=== PATIENT | female | born 1955 | race Caucasian/White ===

== ENCOUNTER 2016-09-27 14:52 | Emergency (ER) | payer OTHER ==
[~2016-09-27] VITALS: Ht 154.9 cm; Wt 70.0 kg
[~2016-09-27 14:52] MED LIST: AZIT250T3 PO; BENZ100 PO; LEVO.125 PO; PRED20 PO
[2016-09-27 15:02] VITALS: BP 128/72; PULSE 81; RESP 17; TEMP 98.5; O2SAT 98
[2016-09-27 15:39] LABS: BLOOD, URINE NEG (NEG); GLUCOSE,URINE NEG (NEG); KETONE, URINE NEG (NEG); NITRITE,URINE NEG (NEG)
[2016-09-27] MEDS ORDERED: MACR100C2 PO (15:49)
[2016-09-27] MEDS ORDERED: CIPR-9 PO (15:49)
[2016-09-27 15:51] LABS: BACTERIA, URINE FEW /hpf; COMMENT (UR) CULT NOT INDICATED; CULTURE IF INDICATED CULT NOT INDICATED; RBC, URINE 0-3 /hpf (0-3); URINE COLOR STRAW (YELLW/STRAW)
[2016-09-27] MEDS ORDERED: FLUCONAZOLE 100 MG TAB PO ONE (17:00)
--- NOTE | 2016-09-27 17:02 | PD ---
HPI Chief Complaint: Complaint Time Seen by Provider: 15:38 Travel History International Travel<30 days: No Contact w/Intl Traveler<30days: No Traveled to known affect area: No History of Present Illness HPI Patient is a 60-year-old female presents emergency department for evaluation of recurrent dysuria. Patient has been treated with antibiotics multiple times has been following with the urologist intermittently. Patient states that she went to an urgent care facility and was diagnosed with UTI and she just finished antibiotics. Patient states she still feels quite an urgency to urinate and feels like her bladder is never fully emptied. Denies any fever denies any nausea vomiting vaginal bleeding or vaginal discharge. PFSH Past Medical History Anemia: No Arthritis: Yes (RA) Asthma: No Autoimmune Disease: No Blood Disorders: No Anxiety: No Depression: No Heart Rhythm Problems: No Cancer: No Cardiovascular Problems: Yes (HEART MURMUR) Chest Pain: No Congestive Heart Failure: No COPD: No Cerebrovascular Accident: No Diabetes: No Diminished Hearing: No Endocrine: Yes Gastrointestinal Disorders: Yes GERD: Yes Genitourinary: Yes Headaches: No Hepatitis: No Hiatal Hernia: Yes Hypertension: No Immune Disorder: No Kidney Stones: Yes Musculoskeletal: No Neurologic: Yes Psychiatric: No Reproductive: No Respiratory: Yes (2 NODULES ON LUNGS BEING FOLLOWED) Migraines: No Myocardial Infarction: No Renal Failure: No Seizures: Yes (S/P HEAT STROKE) Sleep Apnea: No Thyroid Disease: Yes Ulcer: No Menopausal: Yes Past Surgical History Abdominal Surgery: Yes (APPENDECTOMY - CHILDHOOD) Appendectomy: Yes Cardiac Surgery: No Cholecystectomy: Yes Ear Surgery: No Endocrine Surgery: No Eye Surgery: No Genitourinary Surgery: Yes (BLADDER SUSP, CYSTO STONE RETRIEVAL, URETHRAL COLLAPSE ) Gynecologic Surgery: Yes (PARTIAL HYSTERECTOMY) Hysterectomy: Yes (PARTIAL) Oral Surgery: No Thoracic Surgery: No Other Surgery: Yes Social History Alcohol Use: No Tobacco Use: No Substance Use: No Allergies-Medications (Allergen,Severity, Reaction): Coded Allergies: Levaquin (Verified Allergy, Severe, SOB, 09/27/16) Penicillin (Verified Allergy, Severe, Anaphylaxis, 09/27/16) Sulfa (Verified Allergy, Severe, HIVES, 09/27/16) Vancomycin (Verified Allergy, Severe, Anaphylaxis, 09/27/16) Morphine (Verified Adverse Reaction, Severe, VOMITING, 09/27/16) Reported Meds & Prescriptions Reported Meds & Active Scripts Active Reported Cipro (Ciprofloxacin HCl) 500 Mg Tab 500 Mg PO BID Macrobid (Nitrofurantoin Monoh/Nitrofur Macro) 100 Mg Cap 100 Mg PO BID Synthroid (Levothyroxine Sodium) 125 Mcg Tab 137 Mcg PO DAILY Review of Systems Except as stated in HPI: all other systems reviewed are Neg Physical Exam Narrative GENERAL: Well-developed well-nourished no apparent distress. SKIN: Warm and dry. HEAD: Atraumatic. Normocephalic. EYES: Pupils equal and round. No scleral icterus. No injection or drainage. ENT: No nasal bleeding or discharge. Mucous membranes pink and moist. NECK: Trachea midline. No JVD. CARDIOVASCULAR: Regular rate and rhythm. No murmur appreciated. RESPIRATORY: No accessory muscle use. Clear to auscultation. Breath sounds equal bilaterally. GASTROINTESTINAL: Abdomen soft, non-tender, nondistended. Hepatic and splenic margins not palpable. Minimal suprapubic tenderness. exam: Patient exam performed with female nurse pressure supervisor at all time. Patient has no bimanual tenderness no vaginal tenderness. She has minimal curd like discharge consistent with yeast infection. MUSCULOSKELETAL: No obvious deformities. No clubbing. No cyanosis. No edema. NEUROLOGICAL: Awake and alert. No obvious cranial nerve deficits. Motor grossly within normal limits. Normal speech. PSYCHIATRIC: Appropriate mood and affect; insight and judgment normal. Data Data Last Documented VS Vital Signs Date Time Temp Pulse Resp B/P Pulse Ox O2 Delivery O2 Flow Rate FiO2 09/27/16 17:34 85 17 125/77 96 Room Air 09/27/16 15:02 98.5 Orders Urinalysis - C+S If Indicated (09/27/16 15:06) Ed Poc Ultrasound (09/27/16 ) Gc And Chlamydia Pcr (09/27/16 16:12) Wet Prep Profile (09/27/16 16:12) Fluconazole (Diflucan) (09/27/16 17:00) Labs Laboratory Tests Test 09/27/16 09/27/16 15:23 16:50 Urine Color STRAW Urine Turbidity CLEAR Urine pH 6.0 Urine Specific [place] 1.012 Urine Protein NEG mg/dL Urine Glucose (UA) NEG mg/dL Urine Ketones NEG mg/dL Urine Occult Blood NEG Urine Nitrite NEG Urine Bilirubin NEG Urine Leukocyte Esterase NEG Urine RBC 0-3 /hpf Urine WBC 3-5 /hpf Urine Squamous Epithelial 6-8 /hpf Cells Urine Bacteria FEW /hpf Microscopic Urinalysis Comment CULT NOT INDICATED Clue Cells (Wet Prep) NONE SEEN Vaginal Trichomonas (Wet Prep) NONE SEEN Vaginal Yeast (Wet Prep) NONE SEEN Chlamydia trachomatis DNA NOT DETECTED (PCR) Neisseria gonorrhoeae DNA NOT DETECTED (PCR) MDM Medical Decision Making Medical Screen Exam Complete: Yes Emergency Medical Condition: Yes Differential Diagnosis Yeast infection, overactive bladder, recurrent urinary tract infection. Urinary retention. Narrative Course Patient roomed in emergency department, she appears well and her vital signs are all stable. Abdomen is benign. UA is negative. Need to consider interstitial cystitis as possible cause. Recommended follow-up with her urologist. She also has mild yeast infection. Otherwise she is stable for discharge this time. Procedures Procedure Narrative Bedside ultrasound shows a post void residual bladder with less than 100 cc of urine. No pelvic free fluid. Diagnosis Primary Impression: Overactive bladder Additional Impression: Yeast infection Referrals: Montrell Chatman MD Disposition: 01 DISCHARGE HOME Condition: Stable Arcenio Monson MD Sep 27, 2016 17:02
[2016-09-27 17:34] VITALS: BP 125/77; PULSE 85; RESP 17; O2SAT 96
[2016-09-27 21:38] LABS: CHLAMYDIA PCR NOT DETECTED (NOT DETECT); NEISSERIA PCR NOT DETECTED (NOT DETECT)
== END 2016-09-27 17:37 | disposition home or self-care (01) ==
LOC: PHED 14:52
DX: N32.81 Overactive bladder (principal); B37.3 Candidiasis of vulva and vagina; E07.9 Disorder of thyroid, unspecified; Z87.39 Personal history of other diseases of the musculoskeletal system and connective tissue; Z86.79 Personal history of other diseases of the circulatory system; Z87.19 Personal history of other diseases of the digestive system; Z87.448 Personal history of other diseases of urinary system; Z87.442 Personal history of urinary calculi; Z86.69 Personal history of other diseases of the nervous system and sense organs; Z87.09 Personal history of other diseases of the respiratory system
CPT/HCPCS: 81001; 87210; 87491; 87591; 99283